=== PATIENT | male | born 1990 | race Caucasian/White ===

== ENCOUNTER → 2021-09-24 | Outpatient (CLI) | payer BC ==
--- NOTE | 2021-09-24 10:45 | Diagnostic Imaging Report ---
Indication: Low back pain. Time of Exam: 9:19 AM Three views of the lumbar spine were obtained. Curvature of the lumbar spine is normal. There is grade 1 spondylolisthesis of L5 on S1. There is probable pars defects at L5-S1. Vertebral body heights and disc spaces are well-maintained. No fractures are seen. IMPRESSION: Grade 1 spondylolisthesis of L5 on S1 with probable bilateral pars defects. No other significant abnormality is detected. Dictated by: Dictated on workstation # [id number]
== END ==
LOC: RAD 09:02
PROVIDERS: ATTEND Family Medicine
DX: M43.17 Spondylolisthesis, lumbosacral region (principal)
CPT/HCPCS: 72100

== ENCOUNTER → 2022-03-11 | Outpatient (CLI) | payer BC ==
--- NOTE | 2022-03-11 16:11 | Diagnostic Imaging Report ---
INDICATION: Back pain There is approximately 10 degrees right convexity curvature of thoracic spine as measured between T1 and T7. Vertebral body heights and disc spaces are maintained. There is no lytic or sclerotic lesion. No fracture is identified. IMPRESSION: Approximately 10 degrees right convexity curvature of the thoracic spine may be related to scoliosis or possible muscle spasm. Dictated by: Dictated on workstation # [id number]
== END ==
LOC: RAD 14:04
PROVIDERS: ATTEND Nurse Practitioner Family
DX: M54.6 Pain in thoracic spine (principal)
CPT/HCPCS: 72072